=== PATIENT | female | born 1950 ===

== ENCOUNTER → 2018-03-26 | Outpatient (CLI) | payer OTHER | END | disposition home or self-care (01) | LOC: OIH 13:38 | PROVIDERS: ATTEND Internal Medicine | DX: Z13.6 Encounter for screening for cardiovascular disorders (principal); R07.2 Precordial pain; I44.4 Left anterior fascicular block; R73.03 Prediabetes; K44.9 Diaphragmatic hernia without obstruction or gangrene | CPT/HCPCS: 75571 ==